=== PATIENT | female | born 1995 | race African-American/Black ===

== ENCOUNTER 2018-11-15 21:50 | Emergency (ER) | payer MEDICAID ==
[~2018-11-15] VITALS: Ht 160 cm; Wt 90.7 kg
[2018-11-15 22:06] VITALS: BP 129/89
[2018-11-16] MEDS ORDERED: ACETAMINOPHEN/CODEINE#3 (300/30mg) TAB PO ONE (02:00)
[2018-11-16] MEDS: cefTRIAXone SOD 1,000 MG VL IM ONE ×2 (02:12→02:30)
[2018-11-16] MEDS: methylPREDNISolone SOD SUCC 125 MG/2 ML VL IM ONE ×2 (02:12→02:30)
== END 2018-11-16 03:13 | disposition home or self-care (01) ==
LOC: ER 21:50
DX: J06.9 Acute upper respiratory infection, unspecified (principal)
CPT/HCPCS: 96372; 99283; J0696; J2930